=== PATIENT | male | born 1965 | race Caucasian/White ===

== ENCOUNTER 2016-03-27 07:43 | Day surgery (SDC) | payer OTHER ==
[~2016-03-27] VITALS: Ht 170.2 cm; Wt 88.3 kg
[~2016-03-27 07:43] MED LIST: 0.9% Sodium Chloride 1,000 ML IV SCH; INFL100V IV; Sodium Chloride LOK Flush 10 mL Syringe IV PRN; fentaNYL-PF 50 mCg/mL 2 mL Inj IVPUSH PRN
[2016-03-27 08:13] VITALS: BP 145/103; PULSE 88; RESP 19; O2SAT 94
[2016-03-27 09:24] VITALS: BP 132/79; PULSE 86; O2SAT 92
[2016-03-27 09:50] VITALS: BP 128/86; PULSE 84; RESP 16; O2SAT 94
--- NOTE | 2016-03-27 11:51 | ENDO ---
[address] [address] ENDOSCOPY PROCEDURE PATIENT: HECTOR FRANCO : 1965 MR#: [id number] ADMIT: 03/27/2016 JOB ID: [id number] DATE OF SERVICE: 03/27/2016 PRIMARY PROVIDER: Enrique Velazquez MD. PROCEDURE: Colonoscopy with segmental biopsies. INDICATIONS: A 50-year-old male with a history of ulcerative colitis going back 10 years now. He reports for surveillance. He remains on Remicade. EQUIPMENT: [id number]. SEDATION: 1. Versed 7 mg. 2. Fentanyl 150 mcg. COMPLICATIONS: None identified. BOWEL PREPARATION: Fair, adequate exam. PROCEDURE INFORMATION: After the risks and benefits were explained, written and verbal informed consent was obtained. The patient was brought into the endoscopy suite and placed into the left lateral decubitus position. Sedation was achieved using the above-stated medications with the addition of oxygen via nasal cannula. A digital rectal examination was accomplished. No significant pathology was appreciated apart from some mild internal hemorrhoids. The scope was introduced into the rectum and advanced under direct visualization to the cecum as identified by the appendiceal orifice and ileocecal valve. The scope was slowly withdrawn to carefully examine the mucosa for any defects or lesions. Retroflexed views were avoided in the rectum. Multiple direct views were made through the dentate line for exclusion of pathology. The colon was decompressed. The scope removed from the patient who tolerated the procedure well. FINDINGS: There was some very mild scattered patchy erythema in the distal rectum and then in the sigmoid. Otherwise, I did not see any overt macroscopic signs of colitis. No significant polyps or mass lesions throughout. Segmental biopsies were taken from the ascending, transverse, descending, sigmoid and finally rectum for histopathologic analysis. ENDOSCOPIC DIAGNOSES: 1. Mild hemorrhoids. 2. Very subtle mild patchy erythema in the left colon. RECOMMENDATIONS: 1. Await histopathology. 2. Continue Remicade. 3. Repeat colonoscopy in two years' time.
--- NOTE | 2016-03-28 11:43 | PATH ---
SURGICAL PATHOLOGY Attending Physician:Roxana Denis CASE STATUS: Signed Out PATIENT NAME: HECTOR FRANCO PID: [id number] : 1965 DATE COLLECTED:03/27/2016 16:15 SPECIMEN: 1: Colon, Biopsy 2: Colon, Biopsy 3: Colon, Biopsy 4: Colon, Biopsy 5: Rectum, Biopsy CLINICAL HISTORY: 1: ASCENDING COLON BIOPSIES 2: TRANSVERSE COLON BIOPSIES 3: DESCENDING COLON BIOPSIES 4: SIGMOID COLON BIOPSIES 5: RECTAL POLYP FINAL DIAGNOSIS: 1. Ascending Colon Biopsies: Colonic mucosa with no diagnostic alterations. Negative for inflammation, granulomas, dysplasia and malignancy. 2. Transverse Colon Biopsies: Colonic mucosa with no diagnostic alterations. Negative for inflammation, granulomas, dysplasia and malignancy. 3. Descending Colon Biopsies: Colonic mucosa with no diagnostic alterations. Negative for inflammation, granulomas, dysplasia and malignancy. 4. Sigmoid Colon Biopsies: Colonic mucosa with no diagnostic alterations. Negative for inflammation, granulomas, dysplasia and malignancy. 5. Rectal Polyp: Hyperplastic polyp. ICD10 K62.1 GROSS DESCRIPTION: The specimen is received in five formalin filled containers labeled with the patient's name. 1). The specimen is sublabeled "ascending colon" and consists of 2 portions of tissue which aggregate to 0.3 x 0.3 x 0.2 CM. The specimen is entirely submitted in cassette 1A. 2). The specimen is sublabeled "transverse colon" and consists of 2 portions of tissue which aggregate to 0.3 x 0.3 x 0.3 CM. The specimen is entirely submitted in cassette 2A. 3). The specimen is sublabeled "descending colon" and consists of a 0.3 x 0.3 x 0.2 CM portion of tissue which is entirely submitted in cassette 3A. 4). The specimen is sublabeled "sigmoid colon" and consists of 2 portions of tissue which aggregate to 0.2 x 0.2 x 0.2 CM. The specimen is entirely submitted in cassette 4A. 5). The specimen is sublabeled "rectal" and consists of 2 portions of tissue which aggregate to 0.3 x 0.2 x 0.2 CM. The specimen is entirely submitted in cassette 5A. 03/27/2016 DAC MICRO DESCRIPTION: Please see diagnosis. ICD-9 CODES: CPT CODES: 1: 37080 2: 13631 3: 25319 4: 65452 5: 94613 Electronically Signed Out Maricarmen Jaffe MD [facility] [address], [place] [address] Technical component performed at [facility], [address], [place], [address]
== END 2016-03-27 23:59 | disposition home or self-care (01) ==
LOC: END 07:43
PROVIDERS: ATTEND Internal Medicine Gastroenterology
DX: Z12.11 Encounter for screening for malignant neoplasm of colon (principal); K63.5 Polyp of colon; K62.1 Rectal polyp; K64.8 Other hemorrhoids; K51.90 Ulcerative colitis, unspecified, without complications
CPT/HCPCS: 45380; 99153; G0500; J2250; J7030